=== PATIENT | male | born 1940 | race Caucasian/White ===

== ENCOUNTER 2018-12-21 19:12 | Inpatient (IN) | payer OTHER, MEDICARE ==
[2018-12-21] MEDS ORDERED: NS 1,000 ML IV ONE (19:17)
--- NOTE | 2018-12-21 19:33 | EDPHY ---
H & P Stated Complaint: weakness, unable to stand up from bed Time Seen by Provider: 12/21/18 19:29 HPI/ROS: HPI CHIEF COMPLAINT: Generalized weakness. flu-like illness. HISTORY OF PRESENT ILLNESS: Patient is a 78-year-old male presents emergency room by EMS for generalized weakness, flu-like illness. Patient complaining of nausea, denies any chest pain or shortness of breath. No diarrhea. Complains of global eyes weakness, fatigue, muscle aches, flu-like illness. Patient states he has been weak globally over the last 24-48 hours unable to get out of bed. 911 was called by his vinny. He endorses cough. Denies productivity. Denies fever. Past Medical History: Diabetes, pneumonia Past Surgical History: Knee surgery. Social History: Denies daily use of drugs alcohol tobacco. Family History: Noncontributory ROS REVIEW OF SYSTEMS: 10 Systems were reviewed and negative with the exception of the elements mentioned in the history of present illness. Exam Constitutional elevated, nontoxic triage nursing summary reviewed, vital signs reviewed, awake/alert. Eyes normal conjunctivae and sclera, EOMI, PERRLA. HENT normal inspection, atraumatic, moist mucus membranes, no epistaxis, neck supple/ no meningismus, no raccoon eyes. Respiratory clear to auscultation bilaterally, normal breath sounds, no respiratory distress, no wheezing. Cardiovascular rate normal, regular rhythm, no murmur, no edema, distal pulses normal. Gastrointestinal soft, non-tender, no rebound, no guarding, normal bowel sounds, no distension, no pulsatile mass. Genitourinary no CVA tenderness. Musculoskeletal no midline vertebral tenderness, full range of motion, no calf swelling, no tenderness of extremities, no meningismus, good pulses, neurovascularly intact. Skin pink, warm, & dry, no rash, skin atraumatic. Neurologic awake, alert and oriented x 3, AAOx3, moves all 4 extremities equally, motor intact, sensory intact, CN II-XII intact, normal cerebellar, normal vision, normal speech. Psychiatric normal mood/affect. Heme/Lymph/Immune no lymphadenopathy. Differential Diagnosis: Includes but is not limited to in a particular order acute febrile illness, viral syndrome, pneumonia, UTI, sepsis, influenza, electrolyte disturbance, dehydration. Medical Decision Making: Plan for this patient IV establishment, check influenza, basic blood work, EKG, troponin, electrolytes, chest x-ray. Re- evaluate. Re-evaluation: EKG interpretation by me on record in [facility] system. Impression time of EKG 1937, sinus rhythm rate of 81, PVC present. No signs of acute ischemia specifically no ST elevation. Patient is influenza a positive. Due to the patient's global weakness, not feeling well, generalized weakness, inability to ambulate on his own and influenza a positive he will be admitted to the hospital service. I have consult the hospitalist service Dr. Mahoney who agrees to admit. Tamiflu ordered. Source: Patient - Personal History Current Tetanus/Diphtheria Vaccine: Unsure Current Tetanus Diphtheria and Acellular Pertussis (TDAP): Unsure Tetanus Vaccine Date: 2011 - Medical/Surgical History Hx Asthma: No Hx Chronic Respiratory Disease: No Hx Diabetes: Yes Hx Cardiac Disease: No Hx Renal Disease: No Hx Cirrhosis: No Hx Alcoholism: No Hx HIV/AIDS: No Hx Splenectomy or Spleen Trauma: No Other PMH: pneumonia twice, diabetes type 2. Kidney stone, bladder stone, arthroscopy both knees. abbe, HISTORY OF dvts - Social History Smoking Status: Never smoked Constitutional: Initial Vital Signs Temperature (C) 37.7 C 12/21/18 19:26 Heart Rate 88 12/21/18 19:26 Respiratory Rate 16 12/21/18 19:26 Blood Pressure 114/64 12/21/18 19:26 O2 Sat (%) 89 L 12/21/18 19:26 O2 Delivery Mode Nasal Cannula O2 (L/minute) 2 Allergies/Adverse Reactions: dutasteride [From Avodart] Allergy (Mild, Verified 12/21/18 19:27) Itching levofloxacin [From Levaquin] Allergy (Unknown, Verified 12/21/18 19:27) Itching Home Medications: Medication Instructions Recorded Tamsulosin HCl [Flomax 0.4 MG (*)] 0.4 mg PO HS 01/02/13 metFORMIN HCL [Glucophage 500 mg 500 mg PO BIDMEAL 05/09/18 (*)] Potassium Citrate [Urocit-K 10meq 10 meq PO DAILY 12/21/18 (*)] Medical Decision Making - Data Points Laboratory Results: Laboratory Results 12/21/18 19:15 12/21/18 19:15 Medications Given: Acetaminophen (Tylenol) 650 mg PO Q4 PRN PRN Reason: Pain, Mild/Fever, Can Take PO Stop: 06/19/19 21:46 Last Admin: 12/22/18 03:51 Dose: 650 mg Enoxaparin Sodium (Lovenox) 40 mg SC DAILY [facility] Stop: 06/20/19 08:59 Last Admin: 12/22/18 08:44 Dose: 40 mg Guaifenesin/Dextromethorphan (Robitussin Dm Oral Liquid) 10 ml PO Q4HRS PRN PRN Reason: Cough, Moderate Stop: 06/19/19 22:21 Last Admin: 12/22/18 04:27 Dose: 10 ml Ketorolac Tromethamine (Toradol) 30 mg IVP Q6HRS PRN PRN Reason: Pain, Moderate Stop: 12/26/18 21:45 Last Admin: 12/22/18 04:27 Dose: 30 mg Metformin HCl (Glucophage) 500 mg PO BIDMEAL [facility] Stop: 06/20/19 07:59 Last Admin: 12/22/18 08:43 Dose: 500 mg Oseltamivir Phosphate (Tamiflu) 75 mg PO BID [facility] Stop: 12/26/18 09:01 Last Admin: 12/22/18 08:44 Dose: 75 mg Discontinued Medications Sodium Chloride (Ns) 1,000 mls @ 0 mls/hr IV EDNOW ONE; Wide Open PRN Reason: Protocol Stop: 12/21/18 19:18 Last Admin: 12/21/18 19:40 Dose: 1,000 mls Sodium Chloride (Ns) 1,000 mls @ 100 mls/hr IV CONT YOEL Stop: 06/19/19 21:59 Last Admin: 12/22/18 10:22 Dose: 1,000 mls Oseltamivir Phosphate (Tamiflu) 75 mg PO EDNOW ONE Stop: 12/21/18 20:56 Last Admin: 12/21/18 20:59 Dose: 75 mg Point of Care Test Results: Chemistry 12/21/18 19:45 POC Troponin I 0.01 ng/mL ng/mL (0.00-0.08) Departure - Departure Disposition: [facility] Acute Clinical Impression: Influenza A, Generalized weakness Condition: Good
[2018-12-21 19:36] LABS: PLATELET COUNT 186 10^3/uL (150-400)
[2018-12-21 19:48] LABS: INR 1.12 (0.83-1.16); PROTIME(PATIENT) 14.6 SEC (12.0-15.0)
[2018-12-21] MEDS ORDERED: OSELTAMIVIR PHOSPHATE 75 MG CAP PO ONE (20:55)
[2018-12-21] MEDS ORDERED: KETOROLAC 30 MG/1 ML SDV IVP PRN (21:46)
[2018-12-21] MEDS ORDERED: ONDANSETRON 4 MG/2 ML VIAL IVP PRN (21:47)
[2018-12-21] MEDS ORDERED: traMADol 50 MG TAB PO PRN (21:47)
--- NOTE | 2018-12-21 22:52 | GHP ---
[f rep st] HISTORY AND PHYSICAL DATE OF ADMISSION: 12/21/2018 CHIEF COMPLAINT: Weakness. HISTORY OF PRESENT ILLNESS: The patient is an 78-year-old male who had acute onset of weakness aroun d noon today. He developed flu-like symptoms including severe muscle aches, nausea, and weakness. Bárbara estrada could not get out of bed, and his called 911. He did have a little bit of a cough starting ye sterday already. This has been constant and nonproductive. Today, he developed confusion and was sa very strange things to his , very disoriented. This persisted while he was in the emergency room. PAST MEDICAL HISTORY: 1. BPH. 2. Diabetes. PAST SURGICAL HISTORY: Cholecystectomy. MEDICATIONS: Please see computerized record for full detailed list. ALLERGIES: Levaquin. SOCIAL HISTORY: No smoking. No alcohol. Lives with his . REVIEW OF SYSTEMS: Complete review of systems obtained. Review of systems negative regarding consti tutional, HEENT, GI, pulmonary, vascular, , hematology skin, musculoskeletal, endocrine, psych exce pt for positives and negatives as noted in HPI. FAMILY HISTORY: Reviewed, noncontributory to presenting complaint. PHYSICAL EXAMINATION: GENERAL: Well-developed well-nourished male in no acute distress. VITAL SIGN S: Temperature 37.7, pulse 80, blood pressure 104/54, satting 89% on room air. EYES: Normal conjun ctivae. Pupils equal, round, and reactive to light. ENT: Normal ears, and nose. Hearing intact. Normal teeth. Oropharynx moist. NECK: Trachea midline. No thyromegaly. CHEST: Normal effort. L UNGS: Clear to auscultation bilaterally. CARDIOVASCULAR: Regular rate and rhythm. No murmur. No lower extremity edema. ABDOMEN: Soft, nontender. No hepatosplenomegaly. SKIN: Warm, dry, intact. No rash. MUSCULOSKELETAL: No cyanosis or clubbing. Strength 5/5 in upper and lower extremities. NEURO: Cranial nerves intact. Normal sensation to light touch. PSYCH: He is awake, alert. He is conversant. He is a little confabulatory. Limited insight. DATA REVIEWED: White count 9.47, hematocrit 43.5, platelets 186. Sodium 134, potassium 4.0, chlorid e 103, bicarb 22, BUN 15, creatinine 0.8, glucose 151. LFTs are negative. Troponin is negative. IN R is 1.12. Influenza A is positive. EKG viewed by me. My personal interpretation is normal sinus rhythm, no ST- or T--wave changes. Chest x-ray is negative. This case was discussed with Dr. Bonifacio Treadwell, emergency room physician, regarding ER course. He is too weak to go home. ASSESSMENT AND PLAN: 1. Influenza A. Will start him on Tamiflu, will hydrate with IV fluids, will consult PT-OT. 2. Metabolic encephalopathy. He was confused through much of the day today, and I do believe this i s due to his acute infection. He may already be starting to improve. 3. Diabetes. Continue metformin. 4. Benign prostatic hypertrophy. Flomax. CODE STATUS: Full. ADMISSION STATUS: Will admit to observation. Reevaluate tomorrow regarding the ongoing need for hos pitalization. DVT PROPHYLAXIS: He is high risk, will place him on subcu Lovenox. /[id number]/MODL
[2018-12-21] MEDS: GUAIFENESIN/DM 10 ML UDCUP PO PRN (23:33)
[2018-12-21] MEDS: NS 1,000 ML IV SCH (23:36)
[2018-12-22] MEDS: ACETAMINOPHEN 325 MG TAB PO PRN ×2 (03:51→18:31)
[2018-12-22] MEDS: GUAIFENESIN/DM 10 ML UDCUP PO PRN (04:27)
[2018-12-22] MEDS: metFORMIN HCL 500 MG TAB PO SCH ×2 (08:43→18:31)
[2018-12-22] MEDS: ENOXAPARIN 40 MG/0.4 ML SYR SC SCH (08:44)
[2018-12-22] MEDS: OSELTAMIVIR PHOSPHATE 75 MG CAP PO SCH ×2 (08:44→20:32)
[2018-12-22] MEDS: NS 1,000 ML IV SCH (10:22)
--- NOTE | 2018-12-22 12:24 | ASMTCMCOM ---
CM Note CM Note Notes: Patient is a 78 year old male vinnyy admitted under observation after presenting to [facility] ED with flu like symptoms: weakness,muscle aches, nausea, constant non productive cough along with confusion and disorientation. Past medical history includes BPH and Diabetes. Patient positive for Influenza A. PT evaluation recommending home. CM spoke with WILLIAM Morrissey, patient likely to discharge home independent tomorrow. CM to follow. D/C Plan: Home independent. Date Signed: 12/22/2018 12:23 PM Electronically Signed By:Caty Pimentel
--- NOTE | 2018-12-22 13:03 | HOSPPROG ---
Hospitalist Progress Note Assessment/Plan: Influenza A - cont tamiflu, supportive care Hypoxia - mild, but sats in 80's with ambulation -O2 as needed, wean as able Metabolic encephalopathy - due to above, improved today Diabetes - bg 100's on arrival -cont MTF BPH - cont flomax DVT PPLX - Lovenox Full code Dispo - change to inpt for ongoing hypoxemia and weakness. Suspect he'll be ready to dc tomorrow. Subjective: Pt feels better. He is ambulating. Taking po. Coughing a bit. No fevers. Less achey, less confused. Objective: Vital Signs Temp Pulse Resp BP Pulse Ox 36.8 C 69 16 113/86 H 91 L 12/22/18 12:00 12/22/18 12:00 12/22/18 12:00 12/22/18 12:00 12/22/18 12:00 12/21/18 12/22/18 12/23/18 05:59 05:59 05:59 Intake Total 688 Output Total 100 Balance 588 PT 14.6 SEC (12.0-15.0) 12/21/18 19:15 INR 1.12 (0.83-1.16) 12/21/18 19:15 - Physical Exam Constitutional: no apparent distress Eyes: PERRL Ears, Nose, Mouth, Throat: moist mucous membranes Cardiovascular: regular rate and rhythym Respiratory: no respiratory distress, clear to auscultation Gastrointestinal: normoactive bowel sounds, soft, non-tender abdomen Skin: warm Musculoskeletal: full muscle strength Neurologic: AAOx3 Psychiatric: interacting appropriately ICD10 Worksheet Patient Problems: Problems Problem Status Onset Generalized weakness Acute Influenza A Acute Primary localized osteoarthritis of left knee Acute
[2018-12-22] MEDS: POTASSIUM CITRATE 10 MEQ TAB PO SCH (14:04)
[2018-12-22] MEDS: guaiFENesin 600 MG TAB.ER PO SCH ×2 (14:04→20:32)
--- NOTE | 2018-12-22 18:19 | PDMN ---
Medical Necessity Medical necessity: [facility] Systemic or Infectious Condition: 78 yo presents w / acute onset weakness, confusion and flu like s/sx. Dx w/ Influenza A, admit to OBS initially for workup, monitoring and tx. Pt requires additional MN for ongoing supportive care, still with some metabolic encephalopathy, saturating in 80S w/ ambulation, still weak. Per MD change to inpt for ongoing hypoxemia and weakness. Pt ordered. Hx BPH, DM. Change to IP status 12/22/18@1803 per MD order.
--- NOTE | 2018-12-22 19:52 | CPEKG ---
Test Reason : OPEN Blood Pressure : / mmHG Vent. Rate : 081 BPM Atrial Rate : 080 BPM P-R Int : 157 ms QRS Dur : 098 ms QT Int : 374 ms P-R-T Axes : 044 -23 016 degrees QTc Int : 434 ms Sinus rhythm Multiform ventricular premature complexes Borderline left axis deviation Confirmed by Cecil Treadwell ([id number]) on 12/22/2018 7:51:30 PM Referred By: Cecil Treadwell Confirmed By:Cecil Treadwell
[2018-12-22] MEDS: TAMSULOSIN HCL 0.4 MG CAP PO SCH (20:32)
--- NOTE | 2018-12-23 08:56 | HOSPPROG ---
Hospitalist Progress Note Assessment/Plan: Influenza A - cont tamiflu, supportive care -add prednisone for mild wheezing Hypoxia - sats in 80's with ambulation, on 2 LPM at rest -O2 as needed, wean as able -may consider d/c with home O2, but pt also needs walker and house is cluttered so fall risk is noted Metabolic encephalopathy - due to above, improved today Diabetes - bg 100's on arrival -cont MTF BPH - cont flomax Weakness / deconditioning - cont PT/OT, they recommend front-wheeled walker at dc which pt has at home DVT PPLX - Lovenox Full code Dispo - cont inpt for ongoing hypoxemia and weakness. ADD tbd, likely 1-2 days with or without home O2 Subjective: Pt feels ok, he is still quite weak. Requiring O2 2 LPM. Cough a bit better. Low grade fevers. Denies CP or SOB at rest. Objective: Vital Signs Temp Pulse Resp BP Pulse Ox 37.2 C 69 16 98/64 L 92 12/23/18 07:55 12/23/18 07:55 12/23/18 07:55 12/23/18 07:55 12/23/18 07:55 PT 14.6 SEC (12.0-15.0) 12/21/18 19:15 INR 1.12 (0.83-1.16) 12/21/18 19:15 - Physical Exam Constitutional: no apparent distress Eyes: PERRL Ears, Nose, Mouth, Throat: moist mucous membranes Cardiovascular: regular rate and rhythym Respiratory: no respiratory distress, expiratory wheeze Gastrointestinal: normoactive bowel sounds, soft, non-tender abdomen Skin: warm Musculoskeletal: full muscle strength Neurologic: AAOx3 Psychiatric: interacting appropriately ICD10 Worksheet Patient Problems: Problems Problem Status Onset Generalized weakness Acute Influenza A Acute Primary localized osteoarthritis of left knee Acute
[2018-12-23] MEDS: ENOXAPARIN 40 MG/0.4 ML SYR SC SCH (09:02)
[2018-12-23] MEDS: predniSONE 20 MG TAB PO SCH (09:09)
[2018-12-23] MEDS: POTASSIUM CITRATE 10 MEQ TAB PO SCH (09:09)
[2018-12-23] MEDS: metFORMIN HCL 500 MG TAB PO SCH ×2 (09:09→18:42)
[2018-12-23] MEDS: guaiFENesin 600 MG TAB.ER PO SCH ×2 (09:46→20:56)
[2018-12-23] MEDS: OSELTAMIVIR PHOSPHATE 75 MG CAP PO SCH ×2 (09:46→20:57)
[2018-12-23] MEDS: TAMSULOSIN HCL 0.4 MG CAP PO SCH (20:56)
[2018-12-24] MEDS: POTASSIUM CITRATE 10 MEQ TAB PO SCH (08:23)
[2018-12-24] MEDS: guaiFENesin 600 MG TAB.ER PO SCH (08:23)
[2018-12-24] MEDS: predniSONE 20 MG TAB PO SCH (08:24)
[2018-12-24] MEDS: metFORMIN HCL 500 MG TAB PO SCH (08:24)
[2018-12-24] MEDS: OSELTAMIVIR PHOSPHATE 75 MG CAP PO SCH (08:25)
[2018-12-24] MEDS: ENOXAPARIN 40 MG/0.4 ML SYR SC SCH (08:25)
--- NOTE | 2018-12-24 10:45 | HOSPPROG ---
Hospitalist Progress Note Assessment/Plan: Patient is an 78 y/o male w developed acute onset of weakness w associated severe muscle aches, nausea and weakness. First encounter, chart reviewed. Influenza A - patient has been declining Tamiflu due to diarrhea -prednisone was added for mild wheezing, none today noted on exam Hypoxia - -resolved, on room air at 95% Metabolic encephalopathy - due to above, improved today Diabetes - bg 100's on arrival -cont MTF BPH - cont flomax Weakness / deconditioning - cont PT/OT, they recommend front-wheeled walker at dc which pt has at home DVT PPLX - Lovenox Full code plan: dc home w f/u with his PCP Subjective: Tone said he is feeling great compared to when he came in, would very much like to go home. Objective: Vital Signs Temp Pulse Resp BP Pulse Ox 36.5 C 73 16 106/79 93 12/24/18 07:43 12/24/18 07:43 12/24/18 07:43 12/24/18 07:43 12/24/18 07:43 12/23/18 12/24/18 12/25/18 05:59 05:59 05:59 Intake Total 500 240 Output Total 900 275 Balance -400 -35 PT 14.6 SEC (12.0-15.0) 12/21/18 19:15 INR 1.12 (0.83-1.16) 12/21/18 19:15 - Physical Exam Constitutional: no apparent distress, appears nourished, not in pain Eyes: PERRL Ears, Nose, Mouth, Throat: hearing normal Cardiovascular: regular rate and rhythym Respiratory: no respiratory distress, clear to auscultation, rhonchi (left base , few ) Gastrointestinal: normoactive bowel sounds Skin: warm, normal color Musculoskeletal: full muscle strength Neurologic: AAOx3 Psychiatric: interacting appropriately, not anxious, not encephalopathic ICD10 Worksheet Patient Problems: Problems Problem Status Onset Generalized weakness Acute Influenza A Acute Primary localized osteoarthritis of left knee Acute
[2018-12-24 11:59] VITALS: BP 127/77
--- NOTE | 2018-12-24 12:16 | GDS ---
[f rep st] DISCHARGE SUMMARY DISCHARGE DIAGNOSIS: 1. Influenza A. 2. Acute hypoxemia. 3. Metabolic encephalopathy. 4. Diabetes. 5. BPH. 6. Weakness and deconditioning. HISTORY OF PRESENT ILLNESS: Briefly, the patient is a very sweet 78-year-old male who developed acute onset of weakness with associated severe muscle aches, nausea, and weakness. He was noted to have influenza A. After taking a dose of Tamilu, the patient was concerned it gave him diarrhea. He has declined taking Tamiflu any further. Today, he is feeling markedly better. His oxygen levels are stable on room air. He will be discharged home with followup with his primary care provider. HOSPITAL COURSE BY PROBLEM: 1. Influenza A. Prednisone was added for mild wheezing. We will continue this for a few more days. 2. Hypoxemia, stable. He is on room air. 3. Metabolic encephalopathy, resolved. 4. Diabetes. Recommending that he hold his metformin. This may be the etiology of his diarrhea. 5. BPH, on Flomax. 6. Weakness, conditioning. PT and OT are recommending a front-wheeled walker, which the patient has at home. DISCHARGE CONDITION: Stable. Blood pressure is 106/79, heart rate of 73, respiratory rate of 16, O2 saturation on room air 95%, temperature is 36.5 Celsius. MEDICATIONS AT DISCHARGE: Please see the EMR. DISCHARGE INSTRUCTIONS: 1. To use his front-wheeled walker at home. 2. To take the prednisone for 3 more days with food. 3. If he develops worsening fever, chills, chest pain, or shortness of breath, return to the ER. 4. Recommend he hold his metformin for next few days to see if his diarrhea resolves. If he continues to have diarrhea, to see his primary care provider. /[id number]/MODL MTDD
== END 2018-12-24 13:13 | disposition home or self-care (01) | DRG 193 ==
LOC: EDUNIT# → F3E 21:30 → OBSVTOIN 12-22 18:03
PROVIDERS: ADMIT Internal Medicine; ATTEND Internal Medicine
DX: J10.1 Influenza due to other identified influenza virus with other respiratory manifestations (principal); R09.02 Hypoxemia; J10.2 Influenza due to other identified influenza virus with gastrointestinal manifestations; G93.41 Metabolic encephalopathy; R19.7 Diarrhea, unspecified; N40.0 Benign prostatic hyperplasia without lower urinary tract symptoms; E11.9 Type 2 diabetes mellitus without complications
CPT/HCPCS: 84484-ER; 97116-GP; 97161-GP; G0378; J1650; J1885; J2405; J7512